=== PATIENT | female | born 1985 | race American Indian/Alaskan Native ===

== ENCOUNTER 2016-05-10 01:40 | Emergency (ER) | payer MEDICAID ==
[2016-05-10 02:54] LABS: Basophils % (Auto) 1.4 % (0.0-1.8); Eosinophils % (Auto) 2.3 % (0.0-4.3); Hematocrit 35.1 % (30.3-42.9); Hemoglobin 11.4 gm/dl (10.1-14.3); Mean Corpuscular HGB Conc 32 % (30-34); Mean Corpuscular Hemoglobin 27 pg (28-32); Mean Corpuscular Volume 82 fl (79-97); Platelet Count 300 K/mm3 (140-440); Red Blood Count 4.28 M/mm3 (3.65-5.03); Red Cell Distribution Width 14.4 % (13.2-15.2); White Blood Count 5.6 K/mm3 (4.5-11.0)
[2016-05-10 03:11] LABS: Albumin/Globulin Ratio 1.2 %; BUN/Creatinine Ratio 15.71
[2016-05-10 04:07] LABS: Bilirubin,Urine NEG (Negative); Blood,Urine NEG (Negative); Ketones,Urine TR mg/dL (Negative); Leukocyte Esterase,Urine NEG (Negative); Mucus,Urine 3+ /HPF; Nitrite,Urine NEG (Negative); RBC,Urine < 1.0 /HPF (0.0-6.0)
[2016-05-10] MEDS ORDERED: NACL 0.9% 1000 ML 1,000 ML IV ONE (04:16)
[2016-05-10] MEDS ORDERED: ZOFRAN IV ONE (04:16)
[2016-05-10] MEDS ORDERED: BENTYL IM ONE (04:16)
[2016-05-10 04:27] LABS: Anion Gap 16 mmol/L; Blood Urea Nitrogen 11 mg/dL (7-17); Calcium 9.2 mg/dL (8.4-10.2); Carbon Dioxide 24 mmol/L (22-30); Chloride 99.2 mmol/L (98-107); Glucose 134 mg/dL (65-100); Potassium 3.9 mmol/L (3.6-5.0); Sodium 135 mmol/L (137-145)
[2016-05-10 04:28] LABS: Albumin 4.3 g/dL (3.9-5); Alkaline Phosphatase 45 units/L (35-129); Bilirubin,Total 0.5 mg/dL (0.1-1.2); Lipase 72 units/L (13-60)
--- NOTE | 2016-05-10 04:32 | Emergency Department Report ---
ED N/V/D HPI - General Chief complaint: Abdominal Pain Stated complaint: ABDOMINAL PAIN, VOMITING Time Seen by Provider: 05/10/16 04:12 Source: patient Mode of arrival: Ambulatory Limitations: No Limitations - History of Present Illness Initial comments: 30-year-old femalewith no significant Past medical history presents hospital complains of nausea, vomiting, and diarrhea after eating chicken. Patient javed chicken at 3 PM Wednesday afternoon. She felt nausea afterwards. Patient complains of cramping lower abdominal pain that is intermittent, moderate intensity, worse palpation. No leading factors reported. She has had nausea, vomiting, and diarrhea. Denies melena, hematochezia, fever, sick contacts, or recent travel. Mild dysuria reported. - Related Data Previous Rx's Medication Instructions Recorded Last Taken Type Bismuth Subsalicylate 524 mg PO QID #20 udc 05/10/16 Unknown Rx [Pepto-Bismol] Promethazine [Phenergan TAB] 25 mg PO Q6HR PRN #20 tab 05/10/16 Unknown Rx traMADol [Ultram 50 MG tab] 50 mg PO Q6HR PRN #20 tablet 05/10/16 Unknown Rx Allergies Allergy/AdvReac Type Severity Reaction Status Date / Time No Known Allergies Allergy Verified 05/10/16 01:54 ED Review of Systems ROS: Stated complaint: ABDOMINAL PAIN, VOMITING Other details as noted in HPI Comment: All other systems reviewed and negative Other: Constitutional: No fevers chills or weight loss Eyes: No eye pain visual changes or discharge ENT: No ear pain or throat pain Neck: Denies pain Respiratory: Denies cough wheezing shortness of breath Cardiovascular: Denies chest pain, palpitations, syncope GI: as per hpi :as per hpi Musculoskeletal: mild lower back pain reported Skin: Denies rash, lesions, erythema Neurologic: Denies headache, numbness, weakness Psychiatric: Denies suicidal ideation, hallucinations Hematological/lymphatic: Denies easy bruising, lymphadenopathy ED Past Medical Hx - Past Medical History Previous Medical History?: No - Surgical History Past Surgical History?: No - Social History Smoking Status: Never Smoker Substance Use Type: None - Medications Home Medications: Home Medications Medication Instructions Recorded Confirmed Last Taken Type Bismuth Subsalicylate 524 mg PO QID #20 udc 05/10/16 Unknown Rx [Pepto-Bismol] Promethazine [Phenergan TAB] 25 mg PO Q6HR PRN #20 tab 05/10/16 Unknown Rx traMADol [Ultram 50 MG tab] 50 mg PO Q6HR PRN #20 tablet 05/10/16 Unknown Rx ED Physical Exam - General Limitations: No Limitations - Other Other exam information: General: No limitations, patient is alert in no acute distress Head exam: Atraumatic, normocephalic Eyes exam: Normal appearance, pupils equal reactive to light, extraocular movements intact ENT: Moist mucous membrane, normal oropharynx Neck exam: Normal inspection, full range of motion, no meningismus nontender Respiratory exam: Clear to auscultation bilateral, no wheezes, rales, crackles Cardiovascular: Normal rate and rhythm, normal heart sounds Abdomen: Soft, nondistended, generalized lower abdominal tenderness, with normal bowel sounds, no rebound, or guarding Extremity: Full range of motion normal inspection no deformity Back: Normal Inspection, full range of motion, no tenderness Neurologic: Alert, oriented x3, cranial nerves intact, no motor or sensory deficit Psychiatric: normal affect, normal mood Skin: Warm, dry, intact ED Course Vital Signs 05/10/16 05/10/16 05/10/16 01:54 04:54 05:24 Temperature 98.5 F Pulse Rate 79 77 Respiratory 18 18 18 Rate Blood Pressure 131/70 Blood Pressure 105/59 [Left] O2 Sat by Pulse 100 99 99 Oximetry - Reevaluation(s) Reevaluation #1: 05/10/16 04:32 Saline, Zofran,toradal and Bentyl ordered 05/10/16 04:33 ED Medical Decision Making - Lab Data Result diagrams: 05/10/16 02:35 05/10/16 02:35 Lab Results 05/10/16 05/10/16 05/10/16 Range/Units 02:35 02:35 02:35 WBC 5.6 (4.5-11.0) K/mm3 RBC 4.28 (3.65-5.03) M/mm3 Hgb 11.4 (10.1-14.3) gm/dl Hct 35.1 (30.3-42.9) % MCV 82 (79-97) fl MCH 27 L (28-32) pg MCHC 32 (30-34) % RDW 14.4 (13.2-15.2) % Plt Count 300 (140-440) K/mm3 Lymph % (Auto) 34.6 (13.4-35.0) % [place] % (Auto) 10.7 H (0.0-7.3) % Eos % (Auto) 2.3 (0.0-4.3) % Baso % (Auto) 1.4 (0.0-1.8) % Lymph # 2.0 (1.2-5.4) K/mm3 [place] # 0.6 (0.0-0.8) K/mm3 Eos # 0.1 (0.0-0.4) K/mm3 Baso # 0.1 (0.0-0.1) K/mm3 Seg Neutrophils % 51.0 (40.0-70.0) % Seg Neutrophils # 2.9 (1.8-7.7) K/mm3 Sodium 135 L (137-145) mmol/L Potassium 3.9 (3.6-5.0) mmol/L Chloride 99.2 (98-107) mmol/L Carbon Dioxide 24 (22-30) mmol/L Anion Gap 16 mmol/L BUN 11 (7-17) mg/dL Creatinine 0.7 (0.7-1.2) mg/dL Estimated GFR > 60 ml/min BUN/Creatinine Ratio 15.71 % Glucose 134 H (65-100) mg/dL Calcium 9.2 (8.4-10.2) mg/dL Total Bilirubin 0.5 (0.1-1.2) mg/dL AST 29 (5-40) units/L ALT 8.0 (7-56) units/L Alkaline Phosphatase 45 (35-129) units/L Total Protein 8.0 (6.3-8.2) g/dL Albumin 4.3 (3.9-5) g/dL Albumin/Globulin Ratio 1.2 % Lipase 72 H (13-60) units/L HCG, Qual Negative (Negative) Urine Color (Yellow) Urine Turbidity (Clear) Urine pH (5.0-7.0) Ur Specific [place] (1.003-1.030) Urine Protein (Negative) mg/dL Urine Glucose (UA) (Negative) mg/dL Urine Ketones (Negative) mg/dL Urine Blood (Negative) Urine Nitrite (Negative) Urine Bilirubin (Negative) Urine Urobilinogen (<2.0) mg/dL Ur Leukocyte Esterase (Negative) Urine WBC (Auto) (0.0-6.0) /HPF Urine RBC (Auto) (0.0-6.0) /HPF U Epithel Cells (Auto) (0-13.0) /HPF Urine Mucus /HPF 05/10/16 Range/Units 03:51 WBC (4.5-11.0) K/mm3 RBC (3.65-5.03) M/mm3 Hgb (10.1-14.3) gm/dl Hct (30.3-42.9) % MCV (79-97) fl MCH (28-32) pg MCHC (30-34) % RDW (13.2-15.2) % Plt Count (140-440) K/mm3 Lymph % (Auto) (13.4-35.0) % [place] % (Auto) (0.0-7.3) % Eos % (Auto) (0.0-4.3) % Baso % (Auto) (0.0-1.8) % Lymph # (1.2-5.4) K/mm3 [place] # (0.0-0.8) K/mm3 Eos # (0.0-0.4) K/mm3 Baso # (0.0-0.1) K/mm3 Seg Neutrophils % (40.0-70.0) % Seg Neutrophils # (1.8-7.7) K/mm3 Sodium (137-145) mmol/L Potassium (3.6-5.0) mmol/L Chloride (98-107) mmol/L Carbon Dioxide (22-30) mmol/L Anion Gap mmol/L BUN (7-17) mg/dL Creatinine (0.7-1.2) mg/dL Estimated GFR ml/min BUN/Creatinine Ratio % Glucose (65-100) mg/dL Calcium (8.4-10.2) mg/dL Total Bilirubin (0.1-1.2) mg/dL AST (5-40) units/L ALT (7-56) units/L Alkaline Phosphatase (35-129) units/L Total Protein (6.3-8.2) g/dL Albumin (3.9-5) g/dL Albumin/Globulin Ratio % Lipase (13-60) units/L HCG, Qual (Negative) Urine Color Yellow (Yellow) Urine Turbidity Clear (Clear) Urine pH 5.0 (5.0-7.0) Ur Specific [place] 1.031 H (1.003-1.030) Urine Protein 30 mg/dl (Negative) mg/dL Urine Glucose (UA) Neg (Negative) mg/dL Urine Ketones Tr (Negative) mg/dL Urine Blood Neg (Negative) Urine Nitrite Neg (Negative) Urine Bilirubin Neg (Negative) Urine Urobilinogen 4.0 (<2.0) mg/dL Ur Leukocyte Esterase Neg (Negative) Urine WBC (Auto) 1.0 (0.0-6.0) /HPF Urine RBC (Auto) < 1.0 (0.0-6.0) /HPF U Epithel Cells (Auto) 1.0 (0-13.0) /HPF Urine Mucus 3+ /HPF - Medical Decision Making Patient's lab work is unremarkable. Mild dehydration treated with normal saline in the ED. Patient also received Bentyl, Toradol, and Zofran. Symptoms improved. Patient will be discharged and treated for gastroenteritis - Differential Diagnosis gastroenteritis, appendicitis, UTI Critical Care Time: No Critical care attestation.: If time is entered above; I have spent that time in minutes in the direct care of this critically ill patient, excluding procedure time. ED Disposition Clinical Impression: Acute gastroenteritis Disposition: DISCHARGED TO HOME OR SELFCARE Is pt being admited?: No Does the pt Need Aspirin: No Condition: Stable Instructions: Gastroenteritis (ED) Additional Instructions: Take medication as prescribed. Continue to drink plenty of fluids. Follow-up with your doctor or the doctor provided. Return if symptoms worsen. Prescriptions: Bismuth Subsalicylate [Pepto-Bismol] 524 mg PO QID #20 udc Promethazine [Phenergan TAB] 25 mg PO Q6HR PRN #20 tab PRN Reason: Nausea traMADol [Ultram 50 MG tab] 50 mg PO Q6HR PRN #20 tablet PRN Reason: Pain Referrals: PRIMARY CARE, [Primary Care Provider] - 3-5 Days OSMANY LOMBARDI MD [Staff Physician] - 3-5 Days Time of Disposition: 06:00
[2016-05-10] MEDS ORDERED: TORADOL IV ONE (04:33)
[2016-05-10 05:26] VITALS: BP 105/59
== END 2016-05-10 06:24 | disposition home or self-care (01) ==
LOC: ED 01:40
DX: K52.9 Noninfective gastroenteritis and colitis, unspecified (principal)
CPT/HCPCS: 36415; 80053; 81001; 83690; 84703; 85025; 96361; 96372; 96374; 96375; 99283; J0500; J1885; J2405; J7030